=== PATIENT | female | born 1940 | race Caucasian/White ===

== ENCOUNTER → 2020-07-01 16:02 | Outpatient (BNVA) | payer MEDICARE, SELFPAY | PROVIDERS: Visit Provider Emergency Medicine | DX: M79.641 Pain in right hand (principal); R60.9 Edema, unspecified | CPT/HCPCS: 73130 ==

== ENCOUNTER → 2020-09-19 16:11 | Outpatient (BNVA) | payer MEDICARE, SELFPAY | PROVIDERS: Visit Provider Nurse Practitioner | DX: Z20.828 Contact with and (suspected) exposure to other viral communicable diseases (principal) | CPT/HCPCS: 87635 ==

== ENCOUNTER → 2020-09-21 11:25 | Outpatient (BNVA) | payer MEDICARE, SELFPAY | PROVIDERS: Visit Provider Nurse Practitioner | DX: Z20.828 Contact with and (suspected) exposure to other viral communicable diseases (principal) | CPT/HCPCS: 87635 ==

== ENCOUNTER 2021-07-23 16:07 | Emergency (ER) | payer MEDICARE, SELFPAY ==
[2021-07-23 17:28] VITALS: BP 203/83; PULSE 86; RESP 19; TEMP 37.1; O2SAT 98; BMI 21.8
--- NOTE | 2021-07-23 17:40 | W.ED.EXTPRO ---
HPI - Extremity Problem General: Chief complaint: Extremity Injury, Upper Stated complaint: LEFT INDEX LAC Time Seen by Provider: 07/23/21 17:38 History of Present Illness: HPI Narrative: 81-year-old female comes in today for injury to the left index finger. Patient was using her saw and caught the radial edge of her index finger on left hand. There is damage to the nail. Patient had difficulty controlling the bleeding. Patient was needing her tetanus updated. Patient is alert oriented and appears well. Review of Systems General: Reports: 10 or more systems reviewed and unremarkable except in HPI and below Skin/Breast: Reports: other (laceration to left index finger) [facility] ED PFS: Medical History (Updated 07/23/21 @ 18:52 by PRAKASH Granados) Congestive heart disease Diabetes Gastroesophageal reflux Hyperlipidemia Hypertension Hypothyroidism Surgical History History of back surgery History of bladder surgery History of carotid angioplasty with stent placement History of cholecystectomy History of hysterectomy History of open heart surgery Aortic valve replacement - porcine History of right breast biopsy benign per patient Family History Mother Heart disease Hypertension Brother Heart disease Hypertension Social History Smoking and tobacco status: former smoker Alcohol intake: never Female Reproductive History: Spontaneous abortions: No Physical Exam Const: COMMON NORMALS: no acute distress and patient oriented x3 GENERAL APPEARANCE: cooperative HENMT: COMMON NORMALS: normocephalic and Normal external nose present HEAD & SCALP: normal to inspection and normocephalic NOSE: Normal external nose present Eye: GENERAL EYE: appearance normal, both eyes and all related structures Neck/C-Spine: COMMON NORMALS: full ROM Chest: COMMONS NORMALS: normal inspection of the chest Resp: COMMON NORMALS: normal respiratory effort EFFORT & INSPECTION: Yes able to speak in complete sentences Cardio: COMMON NORMALS: regular rate and regular rhythm RATE: regular rate RHYTHM: regular rhythm GI: COMMON NORMALS: non-tender Extremity: NARRATIVE EXTREMITY EXAM: Laceration to the left index finger to the radial side. Normal range of motion of the finger is noted. Bleeding is controlled at this time. Laceration is an avulsion of tissue extending from the distal tip of the finger to the PIP joint. It does involve the radial side of the nail. Neuro: COMMON NORMALS: patient oriented x3 and moves all extremities Psych: COMMON NORMALS: mental status grossly normal and cooperative Skin: COMMON NORMALS: no rashes or lesions noted GENERAL SKIN EXAM: no rashes or lesions noted Procedures Laceration Laceration 1: Site: hand Side (If applicable): left Size (cm): 3 Description: irregular Local Anesthetic: lidocaine 1% and with epi Amount of anesthesia used (mL): 3 Pre-repair: wound explored and irrigated extensively Skin layer closed with: nylon Size (cm): 4-0 Number of sutures: 4 Course Vital Signs: Vital signs: Vital Signs Temperature 98.7 F 07/23/21 17:28 Pulse Rate 86 07/23/21 17:44 Respiratory Rate 19 H 07/23/21 17:44 Blood Pressure 203/83 07/23/21 17:44 Pulse Oximetry 98 07/23/21 17:44 MDM - Extremity (Nontraumatic) MDM Narrative: Medical decision making narrative: Patient comes in for injury to the left index finger. On exam patient has a laceration to the radial side of the index finger extending to the PIP joint. Patient has normal range of motion. Prompt capillary refill. There is damage to the radial side of the nail bed. No exposure of the nailbed is noted. Some avulsion of the tissue is noted. Differential diagnosis includes fracture, skin avulsion, laceration, need for prophylaxis tetanus, need for prophylaxis antibiotic. X-ray did note a injury to the distal tuft of the finger. Wound thoroughly cleaned and approximated with 4 sutures to maintain tissue alignment. Clean dressing was applied to the wound with some splinting. Patient be started on antibiotic. Tetanus was updated. Patient was recommended to follow-up with primary care on Monday or Monday for reevaluation of wound and continued care. Patient reported understanding and recommendations of treatment plan. Discharge Plan Discharge Patient Disposition: Home Clinical Impression: Laceration of finger of left hand with damage to nail Qualifiers: Encounter type: initial encounter Finger: index finger Foreign body presence: without foreign body Qualified Code(s): S61.311A - Laceration without foreign body of left index finger with damage to nail, initial encounter Condition: Stable Prescriptions: New cephalexin 500 mg capsule 500 mg PO BID 7 Days Qty: 14 RF: 0 No Action cholecalciferol (vitamin D3) 125 mcg (5,000 unit) capsule 125 mcg PO ONCE RF: 0 cranberry 400 mg capsule 400 mg PO ONCE RF: 0 furosemide 40 mg tablet 40 mg PO DAILY RF: 0 Lantus U-100 Insulin 100 unit/mL solution 14 unit SUBCUT DAILY RF: 0 levothyroxine 25 mcg capsule 25 mcg PO DAILY RF: 0 magnesium oxide 500 mg tablet 500 mg PO DAILY RF: 0 metoprolol tartrate 25 mg tablet 12.5 mg PO BID RF: 0 pantoprazole 40 mg tablet,delayed release (DR/EC) 40 mg PO DAILY RF: 0 potassium chloride 10 mEq tablet extended release 10 meq PO DAILY RF: 0 pravastatin 20 mg tablet 20 mg PO DAILY RF: 0 pregabalin 75 mg capsule 75 mg PO BID RF: 0 [id number] 1-5-50 mg tablet PO DAILY RF: 0 tramadol 50 mg tablet 50 mg PO BID PRNRF: 0 Discharge Orders: Discharge ED (Routine); Ordered 07/23/21 Ordered By: Sylvester Lei Referrals: Swathi Nair [Primary Care Provider] - Discharge Diet: Usual diet Discharge Activity: Increase activity as tolerated Patient Instructions: Finger Laceration (ED), Opioid Safety Activity Restrictions/Additional Instructions: Keep wound clean and dry for the next 2 days. After the 2 days you can clean the wound gently with some mild soap and water. Then thoroughly dry and redress. Follow-up with primary care in 3 to 5 days for recheck. Sutures need to come out in 7 to 10 days. Take antibiotic as directed. Return to the emergency department for new concerns. Use acetaminophen and ibuprofen for pain. Coding Level of Care Code ED [employer] for [employer] Fwd Exam Comprehensive
[2021-07-23 17:44] VITALS: BP 203/83; PULSE 86; RESP 19; O2SAT 98
--- NOTE | 2021-07-23 17:58 | XRR_ITS ---
PROCEDURE INFORMATION: Exam: XR Left Hand Exam date and time: 07/23/2021 5:58 PM Age: 81 years old Clinical indication: Injury or trauma; Laceration; Injury date: 07/23/2021; Patient HX: Left index finger lac w/ bandage, table saw injury; Additional info: Injury index finger TECHNIQUE: Imaging protocol: XR Left hand. Views: 3 or more views. COMPARISON: No relevant prior studies available. FINDINGS: Bones/joints: There is a bandage on 2nd finger. There is a small defect/divot in the tuft of the 2nd distal phalanx compatible with recent injury without fracture or dislocation. There are moderate degenerative changes in the hand and wrist. Soft tissues: There is soft tissue edema and laceration of the distal left 2nd finger. No foreign body. XR/XR hand LT min 3V* [id number] IMPRESSION: 1. There is soft tissue edema and laceration of the distal left 2nd finger. 2. There is a small defect/divot in the tuft of the 2nd distal phalanx compatible with recent injury without fracture or dislocation. Radiation Dose CTDIVOL = (mGy): DLP = (mGy-cm)
[2021-07-23] MEDS: HYDROcodone-acetaminophen 5-325 mg Tablet 1 TAB PO (18:11)
[2021-07-23] MEDS: tetanus-dipt-pertussis 0.5 mL SDV IM (18:15)
[2021-07-23] MEDS: cefTRIAXone 1,000 MG in lidocaine 1% 2.1 ML 2.1 MG IM (18:26)
== END 2021-07-23 18:58 | disposition home or self-care (01) ==
PROVIDERS: Emergency Provider Nurse Practitioner Family; PCP Nurse Practitioner Family
DX: S61.311A Laceration without foreign body of left index finger with damage to nail, initial encounter (principal); Z79.4 Long term (current) use of insulin; I11.0 Hypertensive heart disease with heart failure; I50.9 Heart failure, unspecified; E11.9 Type 2 diabetes mellitus without complications; E78.5 Hyperlipidemia, unspecified; Z87.891 Personal history of nicotine dependence; W27.0XXA Contact with workbench tool, initial encounter; Z23 Encounter for immunization
CPT/HCPCS: 12002; 73130; 90471; 90715; 96372; 99283; J0696

== ENCOUNTER 2021-08-02 13:45 | Outpatient (CLI) | payer MEDICARE, SELFPAY | END 2021-08-02 13:46 | disposition home or self-care (01) | PROVIDERS: PCP Nurse Practitioner Family; Visit Provider Emergency Medicine | DX: S61.221A Laceration with foreign body of left index finger without damage to nail, initial encounter (principal); W31.2XXA Contact with powered woodworking and forming machines, initial encounter; I10 Essential (primary) hypertension; E11.9 Type 2 diabetes mellitus without complications; Z87.891 Personal history of nicotine dependence | CPT/HCPCS: 11042; 87070; 87176; 87205; G0463 ==

== ENCOUNTER 2021-08-09 08:47 | Outpatient (CLI) | payer MEDICARE, SELFPAY | END 2021-08-09 08:48 | disposition home or self-care (01) | LOC: WOUND 08:48 | PROVIDERS: PCP Nurse Practitioner Family; Visit Provider Emergency Medicine | DX: S61.221A Laceration with foreign body of left index finger without damage to nail, initial encounter (principal); W27.0XXA Contact with workbench tool, initial encounter; I10 Essential (primary) hypertension; E11.9 Type 2 diabetes mellitus without complications; Z87.891 Personal history of nicotine dependence | CPT/HCPCS: 11042 ==

== ENCOUNTER 2021-08-16 09:12 | Outpatient (CLI) | payer MEDICARE, SELFPAY | END 2021-08-16 09:13 | disposition home or self-care (01) | LOC: WOUND 09:13 | PROVIDERS: PCP Nurse Practitioner Family; Visit Provider Emergency Medicine | DX: S61.221A Laceration with foreign body of left index finger without damage to nail, initial encounter (principal); W27.0XXA Contact with workbench tool, initial encounter; E11.9 Type 2 diabetes mellitus without complications; Z87.891 Personal history of nicotine dependence | CPT/HCPCS: 11042 ==

== ENCOUNTER 2021-08-23 09:29 | Outpatient (CLI) | payer MEDICARE, SELFPAY | END 2021-08-23 09:30 | disposition home or self-care (01) | LOC: WOUND 09:31 | PROVIDERS: PCP Nurse Practitioner Family; Visit Provider Emergency Medicine | DX: I96 Gangrene, not elsewhere classified (principal); S61.221A Laceration with foreign body of left index finger without damage to nail, initial encounter; W29.8XXA Contact with other powered hand tools and household machinery, initial encounter; Z87.891 Personal history of nicotine dependence | CPT/HCPCS: 11042 ==

== ENCOUNTER 2021-08-30 09:13 | Outpatient (CLI) | payer MEDICARE, SELFPAY | END 2021-08-30 09:14 | disposition home or self-care (01) | LOC: WOUND 09:14 | PROVIDERS: PCP Nurse Practitioner Family; Visit Provider Emergency Medicine | DX: S61.221A Laceration with foreign body of left index finger without damage to nail, initial encounter (principal); W27.0XXA Contact with workbench tool, initial encounter; E11.9 Type 2 diabetes mellitus without complications; I10 Essential (primary) hypertension; Z87.891 Personal history of nicotine dependence | CPT/HCPCS: 97597 ==

== ENCOUNTER 2021-09-06 09:21 | Outpatient (CLI) | payer MEDICARE, SELFPAY | END 2021-09-06 09:22 | disposition home or self-care (01) | LOC: WOUND 09:22 | PROVIDERS: PCP Nurse Practitioner Family; Visit Provider Nurse Practitioner Family | DX: Z09 Encounter for follow-up examination after completed treatment for conditions other than malignant neoplasm (principal); Z87.891 Personal history of nicotine dependence | CPT/HCPCS: 99212 ==

== ENCOUNTER 2021-09-28 10:32 | Outpatient (CLI) | payer MEDICARE, SELFPAY | END 2021-09-28 10:33 | disposition home or self-care (01) | LOC: WOUND 10:34 | PROVIDERS: PCP Nurse Practitioner Family; Visit Provider Emergency Medicine | DX: Z09 Encounter for follow-up examination after completed treatment for conditions other than malignant neoplasm (principal); Z87.891 Personal history of nicotine dependence; E11.9 Type 2 diabetes mellitus without complications | CPT/HCPCS: 99212 ==

== ENCOUNTER → 2022-01-21 09:36 | Outpatient (BNVA) | payer MEDICARE, MEDICAID, SELFPAY | PROVIDERS: PCP Nurse Practitioner Family; Referring Provider Nurse Practitioner Family; Visit Provider Otolaryngology | DX: M26.623 Arthralgia of bilateral temporomandibular joint (principal); S03.00XA Dislocation of jaw, unspecified side, initial encounter; H92.03 Otalgia, bilateral; T14.90XA Injury, unspecified, initial encounter; X58.XXXA Exposure to other specified factors, initial encounter | CPT/HCPCS: 99203; 99204 ==

== ENCOUNTER → 2022-03-25 12:44 | Outpatient (BNVA) | payer MEDICARE, MEDICAID, SELFPAY | PROVIDERS: PCP Nurse Practitioner Family; Visit Provider Nurse Practitioner Family | DX: R68.84 Jaw pain (principal) | CPT/HCPCS: 70100 ==